=== PATIENT | female | born 1965 | race Caucasian/White ===

== ENCOUNTER 2017-12-07 07:22 | Day surgery (SDC) | END 2017-12-07 15:22 | disposition home or self-care (01) ==

== ENCOUNTER 2019-02-21 10:51 | Day surgery (SDC) | payer OTHER ==
[2019-02-21] VITALS (10 sets, daily range): BP systolic 94–115; BP diastolic 60–73; PULSE 46–60; RESP 10–26; Ht 165.1 cm; Wt 60.8 kg
[~2019-02-21] VITALS: Ht 165.1 cm; Wt 60.8 kg
[~2019-02-21 10:51] MED LIST: LACTATED RINGER'S 1,000 ML IV* SCH; NO MEDS.
[2019-02-21] MEDS ORDERED: MIDAZOLAM 1 MG/ML 2 ML INJ ONE (12:09)
[2019-02-21] MEDS ORDERED: FENTAnyl 50 MCG/ML VIAL ONE (12:09)
[2019-02-21] MEDS ORDERED: PROPOFOL 20 ML ONE (12:09)
[2019-02-21] MEDS ORDERED: LIDOCAINE 2% (SDV) 5 ML INJ ONE (12:09)
--- NOTE | 2019-02-21 12:43 | PREAC ---
Date/Time of Note Date/Time of Note DATE: 02/21/19 TIME: 12:41 Anesthesia Eval and Record Evaluation Time Pre-Procedure Interview DATE: 02/21/19 TIME: 12:41 Age 54 Sex female NPO: 8 hrs Preoperative diagnosis postmenopausal bleeding Planned procedure hysteroscopy and D and C Past Medical History Past Medical History: None Surgery & Anesthesia Issues No known issue Meds Anticoagulation: No Beta [place] within 24 hr: No Reason Beta [place] not given: Pt. not on B-[place] Discontinued Reported Medications [No Meds.] No Conflict Check 12/07/17 Current Medications Lactated Ringer's 1,000 ml @ 125 mls/hr Q8H IV* ; Start 02/21/19 at 06:00; Stop 02/21/19 at 13:59 Meds reviewed: Yes Allergies Coded Allergies: No Known Allergy (Unverified , 02/21/19) Allergies Reviewed: Yes Labs/Studies Labs Reviewed: Reviewed by anesthesiologist test: Negative Studies: ECG (NSR), CXR Pre-procedure Exam Last vitals Vital Signs Date Temp Pulse Resp B/P (MAP) Pulse Ox O2 O2 Flow FiO2 Time Delivery Rate 02/21/19 97.7 57 16 113/67 98 Room Air 11:46 (82) Airway: Adequate mouth opening, Adequate thyromental dist Mallampati: Mallampati II Teeth: Normal Lung: Normal Heart: Normal ASA Physical Status ASA physical status: 1 Emergency: None Planned Anesthetic General/MAC: LMA Planned Pain Management Parenteral pain med, Local by surgeon Pre-operative Attestations Prior to commencing anesthesia and surgery, the patient was re-evaluated, there was verification of: *The patient's identity *The results of appropriate recent lab work and preoperative vital signs *The above evaluation not changing prior to induction *Anesthetic plan, risk benefits, alternative and complications discussed with patient/family; questions answered; patient/family understands, accepts and wishes to proceed. LEONORA LEBRON Feb 21, 2019 12:43
--- NOTE | 2019-02-21 12:55 | HPN ---
Date/Time of Note Date/Time of Note DATE: 02/21/19 TIME: 12:55 Interval H&P Admission Note Pt. seen H&P reviewed: No system changes EVELYNE BELTRÁN MD Feb 21, 2019 12:55
[2019-02-21] MEDS ORDERED: CEFAZOLIN 1 GM INJ ONE (13:25)
[2019-02-21] MEDS ORDERED: ONDANSETRON 4 MG INJ ONE (13:29)
[2019-02-21] MEDS ORDERED: METOCLOPRAMIDE 10 MG INJ ONE (13:29)
[2019-02-21] MEDS ORDERED: DEXAMETHASONE 4 MG/ML 5 ML INJ ONE (13:29)
[2019-02-21] MEDS ORDERED: FAMOTIDINE 20 MG INJ ONE (13:30)
[2019-02-21] MEDS ORDERED: MEPERIDINE 25 MG INJ IV PRN (14:00)
[2019-02-21] MEDS ORDERED: ONDANSETRON 4 MG INJ IV PRN (14:00)
[2019-02-21] MEDS ORDERED: MIDAZOLAM 1 MG/ML 2 ML INJ IV PRN (14:00)
[2019-02-21] MEDS ORDERED: OXYCODONE/ACETAMINOPHEN (5/325) TAB PO PRN ×2 (14:00)
[2019-02-21] MEDS ORDERED: FENTAnyl 50 MCG/ML VIAL IV PRN ×3 (14:00)
--- NOTE | 2019-02-21 14:54 | PD.PPDC ---
BAG BAILER Discharge Instruction Diagnosis [id number] Final Diagnosis: Uygek3b postmenopausl bleeding , submucosal fibroid Condition [id number] Patient Condition: Jepaa1c Stable Diet [id number] Diet: Nnzgr4z Resume Regular Diet Activity/Restrictions [id number] Activity: Cukyb3m May Shower [id number] Restrictions: Exizr8e No Sexual Activity Nothing in the Vagina No [place] No Tampons, douche Follow-up Follow-up with Physician: 2, Week/Weeks Return to clinic for Exdva1Ey [employer]INE Instructions: [id number] Fever greater than 101 Chills Worsening abdominal pain Excessive Vaginal Bleeding More than 2 pads per hour Unable to tolerate diet EVELYNE BELTRÁN MD Feb 21, 2019 14:54
--- NOTE | 2019-02-21 14:58 | SIPON ---
Date/Time of Note Date/Time of Note DATE: 02/21/19 TIME: 14:55 Operative Report Preoperative Diagnosis postmenopausal bleeding Postoperative Diagnosis submucosal uterine fiboids Operation/Procedure Performed hysteroscopic myomectomy uterine curettage Surgeon see signature line stores assistant cassidy from [employer] Anesthesia: general Estimated blood loss: minimal Transfusion Required none Specimen myoma shredded endomeetrial curettigs Grafts/Implants none Complications none EVELYNE BELTRÁN MD Feb 21, 2019 14:58
--- NOTE | 2019-02-22 14:03 | PAC ---
Date/Time of Note Date/Time of Note DATE: 02/22/19 TIME: 14:03 Post-Anesthesia Notes Post-Anesthesia Note Last documented vital signs Vital Signs Date Temp Pulse Resp B/P (MAP) Pulse Ox O2 O2 Flow FiO2 Time Delivery Rate 02/21/19 96.8 47 18 94/68 (77) 94 Room Air 15:50 Activity: WNL Respiratory function: WNL Cardiovascular function: WNL Mental status: Baseline Pain reasonably controlled: Yes Hydration appropriate: Yes Nausea/Vomiting absent: Yes LEONORA LEBRON Feb 22, 2019 14:03
--- NOTE | 2019-02-24 05:41 | OPR ---
DATE OF OPERATION: 02/21/2019 PREOPERATIVE DIAGNOSIS: Postmenopausal bleeding. POSTOPERATIVE DIAGNOSIS: Submucosal uterine fibroid. OPERATION PERFORMED: Hysteroscopic myomectomy and uterine curettage. SURGEON: Peter Rowe MD RADIOISOTOPE TECHNICIAN: Cruz from [employer]. ANESTHESIA: General. ESTIMATED BLOOD LOSS: Minimal. PROCEDURE: Under proper induction of general anesthesia, the patient was placed on the dorsal lithotomy position. Perineal area and vagina was prepped and draped in usual aseptic manner. On inspection, external genitalia revealed no gross abnormality. Bimanual examination, uterus is in normal size and firm in consistency. There was no palpable adnexal pathology. Weighted speculum was introduced, cervix identified which was clear. Anterior lip of the cervix was grasped with a single tooth tenaculum, and after adjusting the uterine axis to the table and the uterine cavity was sounded which was 8 cm in depth, the cervical os dilated up to 7 and the hysteroscope, which was prepared in usual fashion was inserted into the endocervical canal and advanced to visualize both ostium which was not clear except there was submucosal fibroid is in the low segment, which was noted. Soft tissue shaver was introduced and the shaving started on the submucosal fibroid which was too firm to shave with soft tissue shaver ,It was decided to switch with dense tissue shaver which was inserted with some difficulty approximately residential done, and then because of the shape of tip was blunt and __certain portion of fibroid was not able to reach, so switch back to soft tissue shaver was introduced and then rest of the fibroid was removed. It took starting the procedure at 1315 and ended at 1500. After removal of the submucous fibroid, there was no bleeding noted and the cavity was curetted in all directions with obtaining of small amount of tissue which was sent together. After completing the procedure, all the instruments were removed. The patient withstood procedure well and was sent to the recovery room in stable condition. picture was taken during procedure intermittently Dictated By: PETER EDMONDSON/LUCITA Conf#: [id number] DID#: [id number]
== END 2019-02-21 16:25 | disposition home or self-care (01) ==
LOC: SDS 10:51
PROVIDERS: ATTEND Obstetrics & Gynecology
DX: D25.0 Submucous leiomyoma of uterus (principal); N95.0 Postmenopausal bleeding
CPT/HCPCS: 58558; 88305; J0690; J1100; J2175; J2250; J2405; J2765; J3010; Z7512; Z7610